=== PATIENT | female | born 1995 | race Caucasian/White ===

== ENCOUNTER 2016-10-06 22:46 | Emergency (ER) | payer OTHER ==
[~2016-10-06] VITALS: Ht 162.6 cm; Wt 63.5 kg
[~2016-10-06 22:46] MED LIST: BCPILLS PO
[2016-10-06 22:56] VITALS: TEMP 36.4; Ht 162.6 cm; Wt 63.5 kg
[2016-10-06] MEDS ORDERED: ALBUT/IPRATROP 3MG/0.5MG NEB 3 ML VIAL INH STA (23:16)
[2016-10-06] MEDS ORDERED: HYDROCODONE/HOMATROPINE SYRUP 5MG/1.5MG 5ML UDP PO STA (23:16)
--- NOTE | 2016-10-06 23:25 | EMERGENCY ROOM VISIT NOTE ---
History Report prepared by Teodoraibdavy: Ramirez Ag Under the Supervision of: Dr. Socorro Cruz M.D. First contact with patient: 23:11 Chief Complaint: RESPIRATORY PROBLEMS Stated Complaint: TROUBLE BREATHING History of Present Illness The patient is a 21 year old female who presents to the Emergency Room with complaints of a worsening cough for the past several days. The patient was diagnosed with bronchitis at [facility]. The patient was prescribed Prednisone which she has not taken because it is a "drinking week." The patient coughs to the point that she becomes short of breath. She also complains of some chest tightness. The patient has been having trouble sleeping secondary to her symptoms. She denies any history of asthma and is not a smoker. The patient notes that she was drinking alcohol today until approximately 2029. Source of History: patient Onset: several days Position: other (respiratory) Quality: other (cough) Timing: worsening Associated Symptoms: + SOB, + chest pain Review of Systems See HPI for pertinent positives & negatives. A total of 10 systems reviewed and were otherwise negative. Past Medical & Surgical Medical Problems: (1) Conjunctivitis of both eyes Family History No pertinent family history Social History Smoking Status: Never Smoker Alcohol Use: occasionally Marital Status: single Housing Status: lives with roommate Occupation Status: [employer] student Current/Historical Medications Scheduled Control Pills ( Control Pills), 1 TAB PO DAILY Scheduled PRN Acetaminophen (Tylenol), 1,000 MG PO Q6 PRN for Pain Hydrocodone W/ Homatropine (Hycodan 5/1.5MG 5 Ml), 10 ML PO Q4H PRN for Cough Allergies Coded Allergies: Penicillins (Verified Allergy, Intermediate, "RASH", 10/06/16) Physical Exam Vital Signs Date Time Temp Pulse Resp B/P Pulse Ox O2 Delivery O2 Flow Rate FiO2 10/07/16 00:32 91 20 103/52 97 Room Air 10/06/16 23:51 98 Room Air 10/06/16 23:00 98 Room Air 10/06/16 22:56 36.4 108 22 137/79 100 Room Air Physical Exam Vital signs reviewed. General: Well-appearing female, in no significant distress. HEENT: No scleral icterus, PERRLA, neck supple. Atraumatic. Cardiovascular: Regular rate and rhythm, no extra sounds. Pulmonary: Clear to auscultation bilaterally, normal work of breathing. Abdomen: Soft, nontender, nondistended, positive bowel sounds. Musculoskeletal: Atraumatic, no peripheral edema. Neurologic: Patient awake alert and oriented x 3 Skin: Warm, dry, no rash Medical Decision & Procedures ER Provider Diagnostic Interpretation: X-ray results as stated below per interpretation by me. Negative Chest X-ray. CHEST ONE VIEW PORTABLE HISTORY: cough, COMPARISON: None. FINDINGS: The lungs are clear. Cardiac silhouette is normal in size. No pleural effusions. No pneumothorax. IMPRESSION: No acute process. Electronically signed by: Carlo Prince M.D. 10/07/2016 7:10 AM Dictated Date/Time: 10/07/2016 7:08 AM Medications Administered Medications (Trade) Dose Ordered Sig/Elvin Route Start Time Stop Time Status Last Admin Dose Admin Albuterol/ Ipratropium (Duoneb) 3 ml NOW STAT INH 10/06/16 23:16 10/06/16 23:18 DC 10/06/16 23:27 3 ML Prednisone (PredniSONE TAB) 60 mg NOW STAT PO 10/06/16 23:16 10/06/16 23:18 DC 10/06/16 23:28 60 MG Hydrocodone Bit/ Homatropine Methylb (Hycodan Syrup) 10 ml NOW STAT PO 10/06/16 23:16 10/06/16 23:18 DC 10/06/16 23:28 10 ML ED Course 2315: Past medical records reviewed. The patient was evaluated in room B3a. A complete history and physical examination was performed. 2316: Hycodan 10 ml PO, Prednisone 60 mg PO, DuoNeb 3 ml INH. 0045: Reassessed the patient. Discussed the findings with her. She verbalized understanding and agreement of the treatment plan. The patient is ready for discharge. Medical Decision Differential diagnosis: Etiologies such as infections, reactive airway disease, pneumonia, pneumothorax , COPD, CHF, cardiac ischemia, pulmonary embolism, musculoskeletal, gastrointestinal, as well as others were entertained. This patient was evaluated and appeared to be in no significant distress. Patient was given a DuoNeb treatment. She was given 60 mg of oral prednisone. Chest x-ray was obtained and is clear. I suspect the patient is suffering from a viral bronchitis with secondary reactive airway disease. She has a bottle of prednisone in hand. Patient was advised to begin her prednisone therapy tomorrow. She will use her albuterol inhaler every 4 hours as needed. She was given a prescription for Hycodan syrup and a dose now. She will follow-up with [facility] for reevaluation this week and return to the ER for worsening of symptoms or any medical concerns. Impression Primary Impression: Bronchitis Scribe Attestation The scribe's documentation has been prepared under my direction and personally reviewed by me in its entirety. I confirm that the note above accurately reflects all work, treatment, procedures, and medical decision making performed by me. Departure Information Dispostion Home / Self-Care Prescriptions Hydrocodone W/ Homatropine (HYCODAN 5/1.5MG 5 ML) 1 Syp Syp 10 ML PO Q4H Y for Cough, #100 ML Prov: Socorro Cruz M.D. 10/07/16 Referrals No Doctor, Assigned (PCP) Forms HOME CARE DOCUMENTATION FORM, IMPORTANT VISIT INFORMATION, WORK / SCHOOL INSTRUCTIONS Patient Instructions My [facility] Additional Instructions Diagnosis: Bronchitis Begin your prednisone prescription tomorrow as directed. Albuterol inhaler 2 puffs every 4 hours as needed for wheezing or cough. Hycodan syrup 5-10 mL every 4 hours as needed for cough. This may make you drowsy. Do not drive on this medication. Follow-up with [facility] this week for reevaluation if symptoms persist. Return to the ER for worsening of symptoms or any medical concerns.
[2016-10-06 23:51] VITALS: O2SAT 98
[2016-10-07] MEDS ORDERED: ACET-1256 PO
[2016-10-07 00:32] VITALS: BP 103/52; PULSE 91; O2SAT 97
[2016-10-07] MEDS ORDERED: HYDR5SYP11 PO (00:44)
--- NOTE | 2016-10-07 07:11 | DIAGNOSTIC IMAGING REPORT ---
CHEST ONE VIEW PORTABLE HISTORY: cough, COMPARISON: None. FINDINGS: The lungs are clear. Cardiac silhouette is normal in size. No pleural effusions. No pneumothorax. IMPRESSION: No acute process. Electronically signed by: Carlo Prince M.D. 10/07/2016 7:10 AM Dictated Date/Time: 10/07/2016 7:08 AM
== END 2016-10-07 00:48 | disposition home or self-care (01) ==
LOC: C.EDB 22:48
DX: J40 Bronchitis, not specified as acute or chronic (principal)